=== PATIENT | male | born 1990 | race Caucasian/White ===

== ENCOUNTER 2017-06-07 08:25 | Emergency (ER) | payer SELFPAY ==
[~2017-06-07] VITALS: Ht 170.2 cm; Wt 78.0 kg
[2017-06-07 08:39] VITALS: BP 128/73
== END 2017-06-07 08:54 | disposition home or self-care (01) ==
LOC: EMS 08:26
DX: R23.8 Other skin changes (principal)
CPT/HCPCS: 99281